=== PATIENT | female | born 1945 | race Caucasian/White ===

== ENCOUNTER 2017-02-27 15:53 | Emergency (ER) | payer MEDICARE, OTHER ==
[~2017-02-27] VITALS: Ht 157.5 cm; Wt 106.6 kg
--- OUTSIDE RECORDS SUMMARY | 2017-02-27 16:02 | External Medical Summary Rpt ---
Author Author , Organization [employer] Address Unknown Phone Unavailable Purpose Continuity of Care Document - through 2016
--- OUTSIDE RECORDS SUMMARY | 2017-02-27 16:02 | External Medical Summary Rpt ---
Author Author [employer] Organization [employer] Address Unknown Phone Unavailable Purpose Continuity of Care Document - through 2016
--- OUTSIDE RECORDS SUMMARY | 2017-02-27 16:03 | External Medical Summary Rpt ---
Demographics Preferred Language Slovak Marital Status Unknown Adventism Affiliation Unknown Race Unknown Ethnic Group Unknown Author Author , Organization [employer] Address Unknown Phone Unavailable Purpose Continuity of Care Document - through 2016 Immunization Unable to retrieve immunization data due to connection failure with Immunization Registry. Please try again later.
--- OUTSIDE RECORDS SUMMARY | 2017-02-27 16:03 | External Medical Summary Rpt ---
Demographics Preferred Language Nigerian Marital Status Unknown Worship Affiliation Unknown Race Unknown Ethnic Group Unknown Author Author , Organization [employer] Address Unknown Phone Unavailable Purpose Continuity of Care Document - through 2016 Immunization Unable to retrieve immunization data due to connection failure with Immunization Registry. Please try again later.
[2017-02-27] MEDS ORDERED: ZOLPIDEM 5MG TAB5 MG PO (16:06)
[2017-02-27] MEDS ORDERED: SIMVASTATIN20 MG PO (16:06)
[2017-02-27] MEDS ORDERED: PIOGLITAZONE HC30 M1 PO (16:07)
[2017-02-27] MEDS ORDERED: LOSARTAN POTAS100 MG PO (16:07)
[2017-02-27] MEDS ORDERED: SERTRALINE 100100 MG PO (16:08)
[2017-02-27] MEDS ORDERED: ZANTAC 150150 MG PO (16:10)
[2017-02-27 16:19] LABS: URINE BILIRUBIN - DIPSTICK NEGATIVE (NEG); URINE BLOOD TRACE (NEG)
[2017-02-27] MEDS ORDERED: CIPRO 250MG TA250 MG PO (16:38)
[2017-02-27] MEDS ORDERED: CIPRO 500MG TA500 MG PO (16:39)
--- NOTE | 2017-02-27 16:39 | Urgent Treatment Center Report ---
History of Present Issue Date/Time Seen by Provider 02/27/17 8 Visit Reason Pt arrived:Walked Presenting Problem:PT STATES URINARY FREQUENCY AND BURNING WITH URINATION THAT BEGAN TODAY STATES HISTORY OF UTIS Location if Accident: Onset of symptoms date/time:02/27/17/ or onset unknown for:MEDICAL HX UNKNOWN Have you (or family members/close friends) recently traveled outside the [place]? N If Yes, where/when: Have you had exposure to infectious disease within the past month? TB? Other? Specify: c/o "I know I have a UTI and need medication". Pt visiting sisters and is from out of state. Hx of UTIs w/ most recent approx 6 weeks ago. Can't recall antibx taken then, maybe cipro or macrobid "but maybe something else" but pt is sure she wants cipro because she is paying out of pocket, it works "the best" and she doesn't have side effects with it. c/o urinary frequency, dysuria and hesitancy all starting today. No fever, chills, abdominal pain, new back pain, change urine color or odor or vaginal discharge. Hasn't taken or tried anything for symptoms. Source patient Exam Limitations no limitations ALLERGIES Coded Allergies: Sulfa (Sulfonamide Antibiotics) (02/27/17) Home Medications Reported Medications Simvastatin 20 MG PO DAILY #90 Zolpidem Tartrate (Zolpidem) 5 MG PO QHS #90 Losartan Potassium (Losartan 100MG) 100 MG PO DAILY #90 PIOGLITAZONE HCL (Pioglitazone HCl) 30 MG PO DAILY #90 Sertraline Hydrochloride (Sertraline 100MG) 100 MG PO DAILY #180 Ranitidine Hcl (Zantac) 150 MG PO BID History Medical History General CAD? No Angina: No [place]: No Hypertension? Yes Hyperlipidemia? Yes CHF? No DVT? No PE? No COPD? No Asthma? No Anemia? No GERD? Yes Gastric ulcers? No GI Bleed? No Hernia? No Thyroid Problems? No Hypothyroidism? No CVA? No Seizures? No Diabetes? Yes Insulin Dependent: No Insulin Pump: No Home FSBS? No Renal Insuffiency? No UTI? Yes Stones? No BPH? No GB Disease: No Nephritic Syndrome? No Asplenia? No Hepatitis? No Sickle Cell Disease? No Arthritis? Yes Migraines? No Cataracts? Yes Glaucoma? No MRSA? No HIV? No TB? No Anxiety? No Depression? Yes Cancer? Yes Site: UTERINE More? No Immunization HX DT/Tetanus Unknown Surgical Hx Previous Surgery?Y HYSTERECTOMY LAUREN KNEE REPLACE Social History Smoking Hx Smoker: Former Smoker Tobacco: No Alcohol Alcohol: Yes Review of Systems All Other Systems Reviewed and Negative Constitutional see HPI Gastrointestinal see HPI, denies nausea, denies vomiting Genitourinary see HPI. denies: hematuria. Musculoskeletal denies other (aches) Psychiatric/Neurological denies headache Physical Exam Vital Signs Vital Signs Date Time Temp Pulse Resp B/P Pulse O2 O2 Flow FiO2 Ox Delivery Rate 02/27 1644 98.5 66 18 155/70 98 02/27 1604 98.5 66 18 155/70 98 General Appearance no apparent distress, obese Respiratory Status No: respiratory distress. Cardiovascular no peripheral edema Gastrointestinal normal bowel sounds, non tender, soft, no suprapubic tenderness or bladder distention Back no CVA tenderness Neurologic alert Skin normal color, warm/dry Medical Decision Making LABS/Meds/Orders Pt receiving controlled substance in ED? No Results/Orders Laboratory Tests 02/27/17 1611: Urine Color YELLOW, Urine Appearance Clear, Urine pH 5.5, Ur Specific [place] 1.010, Urine Protein NEGATIVE, Urine Ketones NEGATIVE, Urine Blood TRACE H, Urine Nitrate NEGATIVE, Urine Bilirubin NEGATIVE, Urine Urobilinogen 0.2, Ur Leukocyte Esterase TRACE H, Urine Glucose NEGATIVE Orders Procedure Date/time Status CULTURE, URINE 02/27 1634 Active [facility] URINE DIPSTICK 02/27 1611 Complete Departure Departure Time of Disposition 1633 Disposition DC Home or Self Care(routine) Clinical Impression Primary Impression: UTI (urinary tract infection) Qualifiers: Urinary tract infection type: acute cystitis Hematuria presence: with hematuria Qualified Code: N30.01 - Acute cystitis with hematuria Condition STABLE Referrals NO REFERRAL Patient is visiting from out of state. Will return home in 3 days. Aware she can return to [facility] or ER in the meantime. * Be SURE to follow up anytime for new or worsening symptoms, if no improvement in 48 hours AND in 10-14 days to repeat UA and ensure infection resolved and blood no longer present. Patient Instructions DI for Hematuria, DI for Urinary Tract Infection (UTI) Additional Instructions * increase fluids, Water and NOT soda or tea * Start antibiotic immediately and be sure to take as ordered for the FULL length of time although you should start to see improvement over the next 48 hours. I understand you prefer Cipro and I will prescribe it but remember it does come with side effects as we discussed. * I understand you do not want pyridium. If you change your mind today before 9pm, call the clinic at [phone] * Be SURE to follow up anytime for new or worsening symptoms, if no improvement in 48 hours AND in 10-14 days to repeat UA and ensure infection resolved and blood no longer present. * Be sure to let your PCP (or whoever you follow up with) know we sent urine culture so they can request records and ensure you are on the appropriate antibiotic if you are not getting better or getting worse!!! Discharge Counseling Counseled pt/family regarding diagnosis, test results, medications/RX, home care, follow up needs Prescriptions Current Visit Scripts Ciprofloxacin HCl (Cipro 500MG TAB) 500 MG PO BID #14 TAB Comments pharmacy notifed to cancel 250mg cipro prescription and fill the 500mg BID. Completed while on the phone w/ [employer]. at [phone]
--- NOTE | 2017-02-27 16:39 | Urgent Treatment Center Report ---
History of Present Issue Date/Time Seen by Provider 02/27/17 8968 Visit Reason Pt arrived:Walked Presenting Problem:PT STATES URINARY FREQUENCY AND BURNING WITH URINATION THAT BEGAN TODAY STATES HISTORY OF UTIS Location if Accident: Onset of symptoms date/time:02/27/17/ or onset unknown for:MEDICAL HX UNKNOWN Have you (or family members/close friends) recently traveled outside the [place]? N If Yes, where/when: Have you had exposure to infectious disease within the past month? TB? Other? Specify: c/o "I know I have a UTI and need medication". Pt visiting sisters and is from [place] of [place]. Hx of UTIs w/ most recent approx 6 weeks ago. Can't recall antibx taken then, maybe cipro or macrobid "but maybe something else" but pt is sure she wants cipro because she is paying out of pocket, it works "the best" and she doesn't have side effects with it. c/o urinary frequency, dysuria and hesitancy all starting today. No fever, chills, abdominal pain, new back pain, change urine color or odor or vaginal discharge. Hasn't taken or tried anything for symptoms. Source patient Exam Limitations no limitations ALLERGIES Coded Allergies: Sulfa (Sulfonamide Antibiotics) (02/27/17) Home Medications Reported Medications Simvastatin 20 MG PO DAILY #90 Zolpidem Tartrate (Zolpidem) 5 MG PO QHS #90 Losartan Potassium (Losartan 100MG) 100 MG PO DAILY #90 PIOGLITAZONE HCL (Pioglitazone HCl) 30 MG PO DAILY #90 Sertraline Hydrochloride (Sertraline 100MG) 100 MG PO DAILY #180 Ranitidine Hcl (Zantac) 150 MG PO BID History Medical History General CAD? No Angina: No [place]: No Hypertension? Yes Hyperlipidemia? Yes CHF? No DVT? No PE? No COPD? No Asthma? No Anemia? No GERD? Yes Gastric ulcers? No GI Bleed? No Hernia? No Thyroid Problems? No Hypothyroidism? No CVA? No Seizures? No Diabetes? Yes Insulin Dependent: No Insulin Pump: No Home FSBS? No Renal Insuffiency? No UTI? Yes Stones? No BPH? No GB Disease: No Nephritic Syndrome? No Asplenia? No Hepatitis? No Sickle Cell Disease? No Arthritis? Yes Migraines? No Cataracts? Yes Glaucoma? No MRSA? No HIV? No TB? No Anxiety? No Depression? Yes Cancer? Yes Site: UTERINE More? No Immunization HX DT/Tetanus Unknown Surgical Hx Previous Surgery?Y HYSTERECTOMY LAUREN KNEE REPLACE Social History Smoking Hx Smoker: Former Smoker Tobacco: No Alcohol Alcohol: Yes Review of Systems All Other Systems Reviewed and Negative Constitutional see HPI Gastrointestinal see HPI, denies nausea, denies vomiting Genitourinary see HPI. denies: hematuria. Musculoskeletal denies other (aches) Psychiatric/Neurological denies headache Physical Exam Vital Signs Vital Signs Date Time Temp Pulse Resp B/P Pulse O2 O2 Flow FiO2 Ox Delivery Rate 02/27 1644 98.5 66 18 155/70 98 02/27 1604 98.5 66 18 155/70 98 General Appearance no apparent distress, obese Respiratory Status No: respiratory distress. Cardiovascular no peripheral edema Gastrointestinal normal bowel sounds, non tender, soft, no suprapubic tenderness or bladder distention Back no CVA tenderness Neurologic alert Skin normal color, warm/dry Medical Decision Making LABS/Meds/Orders Pt receiving controlled substance in ED? No Results/Orders Laboratory Tests 02/27/17 1611: Urine Color YELLOW, Urine Appearance Clear, Urine pH 5.5, Ur Specific [place] 1.010, Urine Protein NEGATIVE, Urine Ketones NEGATIVE, Urine Blood TRACE H, Urine Nitrate NEGATIVE, Urine Bilirubin NEGATIVE, Urine Urobilinogen 0.2, Ur Leukocyte Esterase TRACE H, Urine Glucose NEGATIVE Orders Procedure Date/time Status CULTURE, URINE 02/27 1634 Active [facility] URINE DIPSTICK 02/27 1611 Complete Departure Departure Time of Disposition 1633 Disposition DC Home or Self Care(routine) Clinical Impression Primary Impression: UTI (urinary tract infection) Qualifiers: Urinary tract infection type: acute cystitis Hematuria presence: with hematuria Qualified Code: N30.01 - Acute cystitis with hematuria Condition STABLE Referrals NO REFERRAL Patient is visiting from out of state. Will return home in 3 days. Aware she can return to [facility] or ER in the meantime. * Be SURE to follow up anytime for new or worsening symptoms, if no improvement in 48 hours AND in 10-14 days to repeat UA and ensure infection resolved and blood no longer present. Patient Instructions DI for Hematuria, DI for Urinary Tract Infection (UTI) Additional Instructions * increase fluids, Water and NOT soda or tea * Start antibiotic immediately and be sure to take as ordered for the FULL length of time although you should start to see improvement over the next 48 hours. I understand you prefer Cipro and I will prescribe it but remember it does come with side effects as we discussed. * I understand you do not want pyridium. If you change your mind today before 9pm, call the clinic at [phone] * Be SURE to follow up anytime for new or worsening symptoms, if no improvement in 48 hours AND in 10-14 days to repeat UA and ensure infection resolved and blood no longer present. * Be sure to let your PCP (or whoever you follow up with) know we sent urine culture so they can request records and ensure you are on the appropriate antibiotic if you are not getting better or getting worse!!! Discharge Counseling Counseled pt/family regarding diagnosis, test results, medications/RX, home care, follow up needs Prescriptions Current Visit Scripts Ciprofloxacin HCl (Cipro 500MG TAB) 500 MG PO BID #14 TAB Comments pharmacy notifed to cancel 250mg cipro prescription and fill the 500mg BID. Completed while on the phone w/ PROBATE PARALEGAL. at [phone]
[2017-02-27 16:44] VITALS: BP 155/70
== END 2017-02-27 16:44 | disposition home or self-care (01) ==
LOC: UTC 15:53
PROVIDERS: Nurse Practitioner Family
DX: N30.01 Acute cystitis with hematuria (principal); E11.9 Type 2 diabetes mellitus without complications; K21.9 Gastro-esophageal reflux disease without esophagitis; I10 Essential (primary) hypertension